=== PATIENT | male | born 1965 | race Caucasian/White ===

== ENCOUNTER 2018-03-17 17:44 | Observation (INO) | payer OTHER ==
[~2018-03-17] VITALS: Ht 195.6 cm; Wt 119.6 kg
[~2018-03-17 17:44] MED LIST: ADULT LOW DOSE81 M1 PO; ASPERDRINK81 MG PO; ASPIR-TRIN325 M1 PO; ASPIRIN LOW DOS81 M1 PO; CYCLOBENZAPRINE10 MG PO; DIAZEPAM5 MG PO; EFFIENT10 MG PO; GEMFIBROZIL600 MG PO; HABITROL,NICODE21 MG TD; HYDROCODON-ACE1 EA11 PO; IBUPROFEN800 MG PO; KETOROLAC TROME10 MG PO; LIPITOR40 MG PO; LO-DOSE ASPIRIN81 M1 PO; MEN'S MULTI-VI1 EACH PO; MOTRIN800 MG PO; PRAZOSIN HCL1 MG PO; PREDNISONE20 MG PO; SERTRALINE HCL100 MG PO; TOPROL XL100 MG PO; TOPROL XL50 MG PO; TRAZODONE HCL50 MG PO; TRICOR; VENTOLIN HFA18 GM IH; VICODIN,LORT1 TABLET PO; Vicodin,Lortab 5/500 PO; ZESTRIL,PRINIVI10 M1 PO; ZITHROMAX250 MG PO; Zocor PO
[2018-03-17 18:11] LABS: HEMATOCRIT 45.8 % (38.0-50.0); MCH 33.5 PG (29.0-34.0); MCHC 34.9 G/DL (30.0-36.0); PLATELET COUNT 261 K/uL (156-360); RBC DIS.WIDTH-CV 13.2 % (11.8-14.6); RBC DIS.WIDTH-SD 47.3 % (39-53); RED BLOOD COUNT 4.77 M/uL (4.00-5.50); WHITE BLOOD COUNT 9.2 K/uL (4.1-10.2)
[2018-03-17 18:20] LABS: ALBUMIN 4.1 g/dL (3.2-4.8); CHLORIDE 108 mEq/L (99-109); POTASSIUM 4.3 mEq/L (3.7-5.4); SODIUM 140 mEq/L (136-147)
[2018-03-17 18:22] LABS: GLUCOSE 100 mg/dL (70-99); TOTAL PROTEIN 6.9 g/dL (6.4-8.3)
[2018-03-17 18:24] LABS: TOTAL BILIRUBIN 0.5 mg/dL (0.0-1.0)
[2018-03-17 18:26] LABS: ALKALINE PHOSPHATASE 125 IU/L (3-129); GFR ESTIMATE (CALCULATED) > 59 mL/min/ (58.99-99999)
[2018-03-17 18:27] LABS: UREA NITROGEN (BUN) 13 mg/dL (9-23)
[2018-03-17 18:28] LABS: AST (GOT) 16 IU/L (2-34)
[2018-03-17 18:29] LABS: ALT (GPT) 14 IU/L (3-49)
[2018-03-17 18:31] LABS: TROP-I INTERPRETATION NEGATIVE; TROPONIN-I 0.03 ng/mL (0.0-0.30)
[2018-03-17 18:33] LABS: INTER. NORMALIZED RATIO 0.9
[2018-03-17] MEDS ORDERED: EFFIENT5 MG PO (18:56)
[2018-03-17 20:17] LABS: APPEARANCE CLEAR ((CLEAR)); BILIRUBIN NEGATIVE; BLOOD NEGATIVE; COLOR YELLOW ((YELLOW)); GLUCOSE (STRIP) NEGATIVE; KETONES NEGATIVE; LEUKOCYTES NEGATIVE; NITRITE NEGATIVE; PROTEIN (STRIP) NEGATIVE; SPECIFIC GRAVITY 1.024 (1.000-1.030); UCUL ADDED? NO
[2018-03-17 21:18] VITALS: BP 117/72
[2018-03-18 03:12] VITALS: BP 100/67
[2018-03-18 07:30] VITALS: BP 112/73
[2018-03-18 11:58] VITALS: BP 115/71
== END 2018-03-18 18:33 | disposition home or self-care (01) ==
LOC: EME 17:44 → EDOF 19:44 → ENRESERV 19:46 → 4SOUTH 21:13
PROVIDERS: Emergency Medicine Emergency Medical Services
DX: G51.3 Clonic hemifacial spasm (principal); R47.81 Slurred speech; R20.2 Paresthesia of skin; G50.0 Trigeminal neuralgia; I25.10 Atherosclerotic heart disease of native coronary artery without angina pectoris; Z95.5 Presence of coronary angioplasty implant and graft; E78.5 Hyperlipidemia, unspecified; I25.2 Old myocardial infarction; G89.29 Other chronic pain; M25.569 Pain in unspecified knee; M54.5 Low back pain; I11.9 Hypertensive heart disease without heart failure; E66.01 Morbid (severe) obesity due to excess calories; Z68.31 Body mass index [BMI] 31.0-31.9, adult; Z90.49 Acquired absence of other specified parts of digestive tract; Z79.82 Long term (current) use of aspirin; Z79.02 Long term (current) use of antithrombotics/antiplatelets; F17.200 Nicotine dependence, unspecified, uncomplicated; Z88.5 Allergy status to narcotic agent
CPT/HCPCS: 70450; 70544; 70549; 70551; 71045; 80053; 81003; 82948; 84484; 85027; 85610; 85730; 87641; 93005; 99281; 99285; G0378; J1650; J2060; J3010